=== PATIENT | female | born 1985 | race Caucasian/White ===

== ENCOUNTER 2016-08-14 11:13 | Emergency (ER) | payer OTHER ==
[~2016-08-14 11:13] MED LIST: NORCO 5-325 TA1 EACH PO
[2016-08-14 12:26] LABS: HEMOGLOBIN 11.2 gm/dl (12.3-15.3); RED BLOOD COUNT 3.83 M/UL (4.00-5.10); WHITE BLOOD COUNT 10.5 K/UL (4.5-11.0)
[2016-10-05] MEDS ORDERED: COLACE 100MG C100 MG PO (18:01)
== END 2016-08-14 14:30 | disposition home or self-care (01) ==
LOC: EDSTATUS 11:13 → ER1 11:13
PROVIDERS: Emergency Medicine
DX: O99.89 Other specified diseases and conditions complicating pregnancy, childbirth and the puerperium (principal); S13.9XXA Sprain of joints and ligaments of unspecified parts of neck, initial encounter; S09.90XA Unspecified injury of head, initial encounter; V49.59XA Passenger injured in collision with other motor vehicles in traffic accident, initial encounter; Z3A.31 31 weeks gestation of pregnancy
CPT/HCPCS: 36415; 70450; 72125; 81001; 85025; 86900; 86901; 99285

== ENCOUNTER 2016-08-14 14:21 | Outpatient (CLI) | payer OTHER ==
[2016-10-05] MEDS ORDERED: COLACE 100MG C100 MG PO (18:01)
== END 2016-08-14 17:38 | disposition home or self-care (01) ==
LOC: GENOP 14:21
DX: O9A.213 Injury, poisoning and certain other consequences of external causes complicating pregnancy, third trimester (principal); Z3A.31 31 weeks gestation of pregnancy
CPT/HCPCS: 59025; 96360; 96361; J7120